=== PATIENT | male | born 1970 | race Caucasian/White ===

== ENCOUNTER 2017-06-02 12:56 | Inpatient (IN) | payer OTHER ==
--- NOTE | 2017-06-02 15:22 | HP ---
Admission [facility] Chief Complaint: I am trying to stop using before I get lost. I need help. Allergies/Adverse Reactions: Allergies Allergy/AdvReac Type Severity Reaction Status Date / Time Fish Containing Products Allergy Severe Swelling Verified 06/02/17 15:21 peanut Allergy Severe Swelling Verified 06/02/17 15:21 turkey Allergy Severe Swelling Verified 06/02/17 15:21 History of Present Illness: pt is a 47yr old male with a history of cannabis and cocaine dependence seeking detox for treatment. Exam Limitations: No Limitations - Ebola screening Have you traveled outside of the country in the last 21 days: No Have you had contact with anyone from an Ebola affected area: No Have you been sick,other than usual withdrawal symptoms: No Do you have a fever: No - Review of Systems Constitutional: Loss of Appetite EENT: reports: No Symptoms Reported Respiratory: reports: No Symptoms reported Cardiac: reports: No Symptoms Reported GI: reports: Indigestion : reports: No Symptoms Reported Musculoskeletal: reports: No Symptoms Reported Integumentary: reports: No Symptoms Reported Neuro: reports: Tingling (left arm tingling sensation for about three days but is able to feel arm,fingers,skin. Pt states he may have slept on the arm but not sure.) Endocrine: reports: Excessive Sweating, Flushing, Intolerance to Cold, Intolerance to Heat Hematology: reports: No Symptoms Reported Psychiatric: reports: No Sypmtoms Reported, Judgement Intact, Mood/Affect Appropiate, Orientated x3, Agitated Other Systems: Reviewed and Negative Patient History - Patient Medical History Hx Anemia: No Hx Asthma: Yes Hx Chronic Obstructive Pulmonary Disease (COPD): No Hx Cancer: No Hx Cardiac Disorders: No Hx Congestive Heart Failure: No Hx Hypertension: No Hx Hypercholesterolemia: No Hx Pacemaker: No HX Cerebrovascular Accident: No Hx Seizures: No Hx Dementia: No Hx Diabetes: No Hx Gastrointestinal Disorders: No Hx Liver Disease: No Hx Genitourinary Disorders: No Hx Sexually Transmitted Disorders: No Hx Renal Disease (ESRD): No Hx Thyroid Disease: No Hx Human Immunodeficiency Virus (HIV): No (neg) Hx Hepatitis C: No (neg) Hx Depression: Yes Hx Suicide Attempt: Yes (tried to OD with pill 2014; denies any S/H ideation today.) Hx Bipolar Disorder: Yes Hx Schizophrenia: No - Patient Surgical History Past Surgical History: No - PPD History Previous Implant?: Yes Documented Results: Negative w/o proof Implanted On Prior [facility] Admission?: No PPD to be Administered?: Yes - Reproductive History Patient is a Female of Child Bearing Age (11 -55 yrs old): No - Smoking Cessation Smoking history: Current every day smoker Have you smoked in the past 12 months: Yes Aproximately how many cigarettes per day: 6 Hx Chewing Tobacco Use: No Initiated information on smoking cessation: Yes 'Breaking Loose' booklet given: 06/02/17 - Substance & Tx. History Hx Alcohol Use: No Hx Substance Use: Yes Substance Use Type: Cocaine, Marijuana Hx Substance Use Treatment: Yes (last detox at [facility] for alcohol dependence 01/2017 ) - Substances Abused Cocaine Route: Smoking Frequency: Daily Amount used: $200 Age of first use: 22 Date of Last Use: 06/01/17 Marijuana/Hashish Route: Smoking Frequency: Daily Amount used: $20 Age of first use: 11 Date of Last Use: 06/01/17 Alcohol Route: Oral Frequency: 1-3 times last 30 days Amount used: 2 pints vodka Age of first use: 9 Date of Last Use: 05/18/17 Family Disease History - Family Disease History Family Disease History: Diabetes: Father (), Mother, Heart Disease: Father, Mother, CA: Father, Mother Admission Physical Exam [facility] - Physical General Appearance: Yes: Appropriately Dressed, Mild Distress, Anxious HEENTM: Yes: Hearing grossly Normal, Normal ENT Inspection Respiratory: Yes: Lungs Clear, Normal Breath Sounds, No Respiratory Distress Neck: Yes: No masses,lesions,Nodules Breast: Yes: Within Normal Limits Cardiology: Yes: Regular Rhythm, Regular Rate, S1, S2 Abdominal: Yes: Normal Bowel Sounds, Non Tender, Soft Genitourinary: Yes: Within Normal Limits Back: Yes: Normal Inspection Musculoskeletal: Yes: Within Normal Limits Extremities: Yes: Normal Capillary Refill, Tremors Neurological: Yes: Fully Oriented, Alert, Normal Response Integumentary: Yes: Normal Color Lymphatic: Yes: Within Normal Limits - Diagnostic (1) Asthma Current Visit: Yes Status: Chronic Qualifiers: Asthma severity: mild intermittent Asthma complication type: uncomplicated Qualified Code(s): J45.20 - Mild intermittent asthma, uncomplicated (2) Cannabis dependence Current Visit: Yes Status: Chronic (3) Cocaine dependence Current Visit: Yes Status: Chronic Qualifiers: Substance use status: uncomplicated Qualified Code(s): F14.20 - Cocaine dependence, uncomplicated (4) Nicotine dependence Current Visit: Yes Status: Chronic Qualifiers: Nicotine product type: cigarettes Substance use status: uncomplicated Qualified Code(s): F17.210 - Nicotine dependence, cigarettes, uncomplicated (5) Alcohol abuse Current Visit: No Status: Inactive Cleared for Admission S - Detox or Rehab [facility] Level of Care: Medically Managed Claeared for Rehab Admission: Yes
[2017-06-02] MEDS ORDERED: ACETAMINOPHEN 325 MG TABLET (FP) PO PRN (15:40)
[2017-06-02] MEDS ORDERED: hydrOXYzine PAMOATE 50 MG CAPSULE (FP) PO PRN (15:40)
[2017-06-02] MEDS ORDERED: diphenhydrAMINE HCL 50 MG CAPSULE PO PRN (15:40)
[2017-06-02] MEDS ORDERED: IBUPROFEN 400 MG TABLET (FP) PO PRN (15:40)
[2017-06-02] MEDS ORDERED: MAGNESIUM HYDROX 2400MG/30ML ORAL SUSPENSION 30 ML CUP PO PRN (15:40)
[2017-06-02] MEDS ORDERED: LOPERAMIDE HCL 2 MG CAPSULE PO PRN (15:40)
[2017-06-02] MEDS ORDERED: NICOTINE POLACRILEX 2 MG GUM BC PRN (15:40)
[2017-06-02] MEDS ORDERED: MAG HYDROX/AL HYDROX/SIMETH 30 ML UNIT-DOSE CUP PO PRN (15:40)
[2017-06-02] MEDS ORDERED: MAGNESIUM CITRATE 300 ML BOTTLE PO PRN (15:40)
[2017-06-02] MEDS ORDERED: guaiFENesin/D-METHORPHAN HB 10 ML UNIT-DOSE CUPS PO PRN (15:40)
[2017-06-02] MEDS ORDERED: MENTHOL/PHENOL 1 EACH UD MM PRN (15:40)
[2017-06-02] MEDS ORDERED: P-EPHED 60MG/TRIPROLIDI 2.5MG TABLET PO PRN (15:40)
[2017-06-02 15:45] VITALS: BMI 23.0
[2017-06-02] MEDS ORDERED: ALBUTEROL SO4 6.7 GM HFA INHALER IH PRN (15:45)
[2017-06-02] MEDS: MIRTAZAPINE 15 MG TABLET (FP) PO SCH (21:09)
[2017-06-02] MEDS: DIVALPROEX NA *ER* EXTEND REL 500 MG TABLET.SA (FP) PO SCH (21:09)
[2017-06-02] MEDS: THIAMINE HCL 100 MG TABLET (FP) PO SCH (21:09)
[2017-06-02 23:00] LABS: URINE APPEARANCE CLEAR; URINE BILIRUBIN NEGATIVE (NEGATIVE); URINE BLOOD NEGATIVE (NEGATIVE); URINE COLOR YELLOW; URINE GLUCOSE (UA) NEGATIVE (NEGATIVE); URINE KETONE TRACE (NEGATIVE); URINE LEUK ESTERASE NEGATIVE (NEGATIVE); URINE NITRITE NEGATIVE (NEGATIVE); URINE PROTEIN NEGATIVE (NEGATIVE); URINE UROBILINOGEN NEGATIVE E.U./dl (0.2-1.0)
[2017-06-03] MEDS: PRENATAL VITAMINS W/ FOLIC ACID TABLET (FP) PO SCH (10:04)
[2017-06-03] MEDS: NICOTINE 7 MG/24 HOURS TOPICAL PATCH TD SCH (10:04)
[2017-06-03] MEDS: ARIPiprazole 5 MG TABLET (FP) PO SCH (10:04)
[2017-06-03 10:08] LABS: MCH 34.1 pg (25.7-33.7); MCHC 34.3 g/dl (32.0-35.9); MEAN CELL VOLUME 99.3 fl (80-96); MEAN PLT VOLUME 8.1 fl (7.5-11.1); PLATELET COUNT 206 K/MM3 (134-434); RDW 12.4 % (11.9-15.9)
[2017-06-03 10:17] LABS: ALBUMIN 3.7 g/dl (3.4-5.0); ANION GAP 6 (8-16); CALCIUM 9.2 mg/dL (8.5-10.1); CO2 31 mmol/L (21-32); GLUCOSE,RANDOM 80 mg/dL (74-106)
[2017-06-03 10:21] LABS: ALK PHOS 53 U/L (45-117); BILIRUBIN,TOTAL 0.7 mg/dL (0.2-1.0); CREATININE 1.1 mg/dL (0.7-1.3); SGOT/AST 16 U/L (15-37); SGPT/ALT 18 U/L (12-78); TOT PROT 6.6 g/dl (6.4-8.2)
[2017-06-03] MEDS: MIRTAZAPINE 15 MG TABLET (FP) PO SCH (21:20)
[2017-06-03] MEDS: THIAMINE HCL 100 MG TABLET (FP) PO SCH (21:20)
[2017-06-03] MEDS: DIVALPROEX NA *ER* EXTEND REL 500 MG TABLET.SA (FP) PO SCH (21:20)
[2017-06-04] MEDS: ARIPiprazole 5 MG TABLET (FP) PO SCH (09:59)
[2017-06-04] MEDS: PRENATAL VITAMINS W/ FOLIC ACID TABLET (FP) PO SCH (09:59)
[2017-06-04] MEDS: NICOTINE 7 MG/24 HOURS TOPICAL PATCH TD SCH (10:00)
--- NOTE | 2017-06-04 10:32 | HP ---
Psychiatrist Admission - Data Date of interview: 06/04/17 Admission source: [facility] Identifying data: This is the first 5n inpatient rehabilitation admission for this 47 year old male Medical History: asthma, smokes cigarettes 6-7 a day. Psychiatric History: Patient is very irritable and poor historian, he admits one psychiatric hospitalization at [facility] in due to suicidal attmept as overdosed with pills, he currently attends [facility] and on the following medications Depakote 500 mg po hs, Remeron 15 mg po hs and Abilify 5 mg po daily. He reports was diagnosed as Bipolar. Patient asked to leave office "I don't feel well and meed a rest, I will talk to you when I feel better" and left. Physical/Sexual Abuse/Trauma History: Denies history of sexual, physical and verbla abuse. Vital Signs: Vital Signs - 24 hr 06/04/17 06/04/17 06/04/17 00:30 03:30 06:39 Temperature 98.3 F Pulse Rate 64 Respiratory 18 18 16 Rate Blood Pressure 119/58 Allergies/Adverse Reactions: Allergies Allergy/AdvReac Type Severity Reaction Status Date / Time Fish Containing Products Allergy Severe Swelling Verified 06/02/17 15:21 peanut Allergy Severe Swelling Verified 06/02/17 15:21 turkey Allergy Severe Swelling Verified 06/02/17 15:21 No Known Drug Allergies Allergy Verified 06/02/17 18:26 Date of last physical exam: 06/02/17 Concur with the findings of this exam: Yes - Substance Abuse/Tx History Hx Alcohol Use: Yes (1-3 times last month ) Substance Use Type: Alcohol (drinkins 2 pints of vodka), Marijuana (daily for $ 20) Hx Substance Use Treatment: Yes ( detox at [facility]) - Admission Criteria Previous failed treatment: Yes Poor recovery environment: Yes Comorbidities: Yes Lacks judgement: Yes Mental Status Exam - Mental Status Exam Alert and Oriented to: Time, Place, Person Cognitive Function: Grossly Intact Patient Appearance: Unkempt Mood: Withdrawn, Irritable Affect: Mood Congruent Patient Behavior: Resitive to Care Speech Pattern: Clear, Appropriate Voice Loudness: Normal Thought Process: Intact, Goal Oriented Thought Disorder: Not Present Hallucinations: Denies Suicidal Ideation: Denies Homicidal Ideation: Denies Insight/Judgement: Fair Sleep: Fair Appetite: Fair Muscle strength/Tone: Normal Gait/Station: Normal Psychiatric Findings - Problem List ([place] 1, 2,3) (1) Asthma Current Visit: Yes Status: Chronic Qualifiers: Asthma severity: mild intermittent Asthma complication type: uncomplicated Qualified Code(s): J45.20 - Mild intermittent asthma, uncomplicated (2) Cannabis dependence Current Visit: Yes Status: Chronic (3) Cocaine dependence Current Visit: Yes Status: Chronic Qualifiers: Substance use status: uncomplicated Qualified Code(s): F14.20 - Cocaine dependence, uncomplicated (4) Nicotine dependence Current Visit: Yes Status: Chronic Qualifiers: Nicotine product type: cigarettes Substance use status: uncomplicated Qualified Code(s): F17.210 - Nicotine dependence, cigarettes, uncomplicated (5) Bipolar I disorder with mixed features Current Visit: Yes Status: Acute - Initial Treatment Plan Initial Treatment Plan: will continue his current medications, monitor progress as needed.
--- NOTE | 2017-06-04 16:06 | EKG ---
Test Reason : Blood Pressure : / mmHG Vent. Rate : 069 BPM Atrial Rate : 069 BPM P-R Int : 166 ms QRS Dur : 076 ms QT Int : 416 ms P-R-T Axes : 062 004 -13 degrees QTc Int : 445 ms NORMAL SINUS RHYTHM NORMAL ECG NO PREVIOUS ECGS AVAILABLE Confirmed by TOSHA GARCIA MD ([id number]) on 06/04/2017 4:06:20 PM Referred By: Confirmed By:TOSHA GARCIA MD
[2017-06-04] MEDS: DIVALPROEX NA *ER* EXTEND REL 500 MG TABLET.SA (FP) PO SCH (21:02)
[2017-06-04] MEDS: THIAMINE HCL 100 MG TABLET (FP) PO SCH (21:02)
[2017-06-04] MEDS: MIRTAZAPINE 15 MG TABLET (FP) PO SCH (21:02)
[2017-06-05] MEDS: ARIPiprazole 5 MG TABLET (FP) PO SCH (09:57)
[2017-06-05] MEDS: PRENATAL VITAMINS W/ FOLIC ACID TABLET (FP) PO SCH (09:57)
[2017-06-05] MEDS: NICOTINE 7 MG/24 HOURS TOPICAL PATCH TD SCH (09:58)
[2017-06-05] MEDS ORDERED: MIRTAZAPINE 15 MG TABLET (FP) PO SCH (15:48)
--- NOTE | 2017-06-05 15:48 | PN ---
Psychiatric Progress Note Vital Signs: Vital Signs Period Temp Pulse Resp BP Sys/Rincon Pulse Ox Last 24 Hr 98.1 F 73 18-18 112/74 Date of Session: 06/05/17 Chief Complaint:: "can't sleep" HPI: Patient is a 47 year old with history of cocaine, cannabis, nicotine comorbid Bipolar I disorder. ROS: WNL Current Medications: Active Medications Generic Name Dose Route Start Last Admin Trade Name Freq PRN Reason Stop Dose Admin Acetaminophen 650 mg 06/02/17 15:40 Tylenol - PO Q4H PRN PAIN Al Hydroxide/Mg Hydroxide 30 ml 06/02/17 15:40 Mylanta Oral Suspension - PO Q6H PRN DYSPEPSIA Albuterol Sulfate 2 puff 06/02/17 15:45 Ventolin Hfa Inhaler - IH Q4H PRN Aripiprazole 5 mg 06/03/17 10:00 06/05/17 09:57 Abilify PO 5 mg DAILY ANABELLA Administration Buspirone HCl 15 mg 06/02/17 22:00 06/05/17 09:57 Buspar - PO 15 mg BID ANABELLA Administration Diphenhydramine HCl 50 mg 06/02/17 15:40 Benadryl - PO HSMR1 PRN INSOMNIA Divalproex Sodium 500 mg 06/02/17 22:00 06/04/17 21:02 Depakote *Er* - PO 500 mg HS ANABELLA Administration Eucalyptus/Menthol/Phenol/Sorbitol 1 each 06/02/17 15:40 Cepastat Lozenge - MM Q4H PRN SORE THROAT Guaifenesin 10 ml 06/02/17 15:40 Robitussin Dm - PO Q6H PRN COUGH Hydroxyzine Pamoate 50 mg 06/02/17 15:40 Vistaril - PO Q4H PRN AGITATION Ibuprofen 400 mg 06/02/17 15:40 06/04/17 21:02 Motrin - PO 400 mg Q6H PRN Administration SEVERE PAIN Loperamide HCl 4 mg 06/02/17 15:40 Imodium - PO Q6H PRN DIARRHEA Magnesium Citrate 300 ml 06/02/17 15:40 Citroma - PO Q48H PRN CONSTIPATION Magnesium Hydroxide 30 ml 06/02/17 15:40 Milk Of Magnesia - PO DAILY PRN CONSTIPATION Mirtazapine 15 mg 06/02/17 22:00 06/04/17 21:02 Remeron - PO 15 mg HS ANABELLA Administration Nicotine 7 mg 06/03/17 10:00 06/05/17 09:58 Nicoderm Patch - TD Not Given DAILY ANABELLA Nicotine Polacrilex 2 mg 06/02/17 15:40 Nicorette Gum - BC Q2H PRN NICOTINE REPLACEMENT RX Multivit/Folic Acid/Iron 1 tab 06/03/17 10:00 06/05/17 09:57 Vitamins ([facility]) - PO 1 tab DAILY ANABELLA Administration Pseudoephedrine/Triprolidine 1 combo 06/02/17 15:40 Actifed - PO TID PRN NASAL CONGESTION Thiamine HCl 100 mg 06/02/17 22:00 06/04/17 21:02 Vitamin B1 - PO 100 mg HS ANABELLA Administration Current Side Effect: No Lab tests ordered: No Lab tests reviewed: Yes Provider note:: Patient reports having difficult time to adjust to the unit, he stays most of the days in bed, he reports he can't sleep at nights and next day not able to get up and go to the groups. He reports he is fatiqued and want to rest. Reviewed the medications with the patient, will increase Remeron 30 mg po hs, continue the rest, monitor progress as needed. Patient was encouraged to attend groups. Total face to face time:: 30 Mental Status Exam - Mental Status Exam Alert and Oriented to: Time, Place, Person Cognitive Function: Good Patient Appearance: Unkempt Mood: Anxious, Irritable Affect: Appropriate, Mood Congruent Patient Behavior: Appropriate, Cooperative Speech Pattern: Clear, Appropriate Voice Loudness: Normal Thought Process: Intact, Goal Oriented Thought Disorder: Not Present Hallucinations: Denies Suicidal Ideation: Denies Homicidal Ideation: Denies Insight/Judgement: Fair Sleep: Poorly, Difficulty falling asleep Appetite: Fair Muscle strength/Tone: Normal Gait/Station: Spastic Psychiatric Treatment Plan - Problem List (1) Asthma Current Visit: Yes Qualifiers: Asthma severity: mild intermittent Asthma complication type: uncomplicated Qualified Code(s): J45.20 - Mild intermittent asthma, uncomplicated (2) Cannabis dependence Current Visit: Yes (3) Cocaine dependence Current Visit: Yes Qualifiers: Substance use status: uncomplicated Qualified Code(s): F14.20 - Cocaine dependence, uncomplicated (4) Nicotine dependence Current Visit: Yes Qualifiers: Nicotine product type: cigarettes Substance use status: uncomplicated Qualified Code(s): F17.210 - Nicotine dependence, cigarettes, uncomplicated (5) Bipolar I disorder with mixed features Current Visit: Yes
[2017-06-05] MEDS: DIVALPROEX NA *ER* EXTEND REL 500 MG TABLET.SA (FP) PO SCH (21:31)
[2017-06-05] MEDS: THIAMINE HCL 100 MG TABLET (FP) PO SCH (21:32)
[2017-06-06 07:00] VITALS: BP 118/56; PULSE 70; TEMP 98.2
[2017-06-06] MEDS: NICOTINE 7 MG/24 HOURS TOPICAL PATCH TD SCH (10:44)
[2017-06-06] MEDS: PRENATAL VITAMINS W/ FOLIC ACID TABLET (FP) PO SCH (10:44)
[2017-06-06] MEDS: ARIPiprazole 5 MG TABLET (FP) PO SCH (10:44)
[2017-06-06] MEDS ORDERED: INSULIN (NOVOLOG) ASPART 100 UNITS/ML 10ML VIAL ONE (12:03)
--- NOTE | 2017-06-06 12:07 | PN ---
Psychiatric Progress Note Vital Signs: Vital Signs Period Temp Pulse Resp BP Sys/Rincon Pulse Ox Last 24 Hr 98.2 F 70 18-18 118/56 Date of Session: 06/06/17 Chief Complaint:: " I have decided to go home.I don't want to stay in this place." HPI: Patient was admitted to [address] on 06/02/17 to address cocaine dependence,cannabis dependence,nicotine dependence co-morbid with alcohol abuse and bipolar disorder.Mr Ospina has decided to leave the program after four days of treatment. ROS: Unremarkable.No somatic complaints offered.Patient is alert and fully oriented.Normal vitals. Current Medications: Active Medications Generic Name Dose Route Start Last Admin Trade Name Freq PRN Reason Stop Dose Admin Acetaminophen 650 mg 06/02/17 15:40 Tylenol - PO Q4H PRN PAIN Al Hydroxide/Mg Hydroxide 30 ml 06/02/17 15:40 Mylanta Oral Suspension - PO Q6H PRN DYSPEPSIA Albuterol Sulfate 2 puff 06/02/17 15:45 Ventolin Hfa Inhaler - IH Q4H PRN Aripiprazole 5 mg 06/03/17 10:00 06/06/17 10:44 Abilify PO 5 mg DAILY ANABELLA Administration Buspirone HCl 15 mg 06/02/17 22:00 06/06/17 10:44 Buspar - PO 15 mg BID ANABELLA Administration Diphenhydramine HCl 50 mg 06/02/17 15:40 Benadryl - PO HSMR1 PRN INSOMNIA Divalproex Sodium 500 mg 06/02/17 22:00 06/05/17 21:31 Depakote *Er* - PO 500 mg HS ANABELLA Administration Eucalyptus/Menthol/Phenol/Sorbitol 1 each 06/02/17 15:40 Cepastat Lozenge - MM Q4H PRN SORE THROAT Guaifenesin 10 ml 06/02/17 15:40 Robitussin Dm - PO Q6H PRN COUGH Hydroxyzine Pamoate 50 mg 06/02/17 15:40 Vistaril - PO Q4H PRN AGITATION Ibuprofen 400 mg 06/02/17 15:40 06/04/17 21:02 Motrin - PO 400 mg Q6H PRN Administration SEVERE PAIN Loperamide HCl 4 mg 06/02/17 15:40 Imodium - PO Q6H PRN DIARRHEA Magnesium Citrate 300 ml 06/02/17 15:40 Citroma - PO Q48H PRN CONSTIPATION Magnesium Hydroxide 30 ml 06/02/17 15:40 Milk Of Magnesia - PO DAILY PRN CONSTIPATION Mirtazapine 30 mg 06/05/17 15:48 06/05/17 21:32 Remeron - PO 30 mg HS ANABELLA Administration Nicotine 7 mg 06/03/17 10:00 06/06/17 10:44 Nicoderm Patch - TD Not Given DAILY ANABELLA Nicotine Polacrilex 2 mg 06/02/17 15:40 Nicorette Gum - BC Q2H PRN NICOTINE REPLACEMENT RX Multivit/Folic Acid/Iron 1 tab 06/03/17 10:00 06/06/17 10:44 Vitamins ([facility]) - PO 1 tab DAILY ANABELLA Administration Pseudoephedrine/Triprolidine 1 combo 06/02/17 15:40 Actifed - PO TID PRN NASAL CONGESTION Thiamine HCl 100 mg 06/02/17 22:00 06/05/17 21:32 Vitamin B1 - PO 100 mg HS ANABELLA Administration Medication(s) Change(s): No changes.Medications are reviewed and discussed with the patient.Mr Ospina is on a regimen of depakote ER 500 mg/hs + buspar 15 mg po bid + remeron 15 mg/hs + abilify 5 mg/day.Scripts are sent electronically to [facility] located at [address] [place] [address].Side effects/ benefits revisited with patient.Made aware of risk of liver dysfunction,blood dyscrasias,alopecia,weight gain (depakote),orthostasis (remeron),cardiac adverse events,abnormal involuntary movements (abilify).Patient is informed about the advantages of adherence to aftercare (maintenance of syndromic recovery,mood stabilization,prevention of relapses,decreased frequency of rehospitalizations,amelioration of general functioning/quality of life).Patient endorses favorable response/good tolerability to these medications.States that he will adhere to the regimen and keep his appointments with his caregivers at the [facility] in [facility].Labs results are reviewed.Acceptable for continuation of valproate (in the absence of valproic acid level).LFTs / CBC are normal.No clinical evidence of depakote toxicity. Current Side Effect: No Lab tests ordered: No Lab tests reviewed: Yes (See comments.) Provider note:: Patient has made the decision to leave this program.Sales Department Supervisor met with Mr Ospina to discuss his reasons.He states that he " cannot stay so long without a cigarette ",that he feels " like in detention in here ",that after five days in this setting,he feels " much better and ready to return to my residential ".Patient is encouraged to stay in treatment but he declines to reconsider.Mr Ospina comments that his medications and an [facility] clinic are now available to him.Patient is with the opinion that a less restrictive therapeutic milieu will be more suitable to his needs.Mental status is unremarkable.See MSE report.Mr Ospina is at his baseline.Capable of making his own decisions about his welfare. Mental Status Exam - Mental Status Exam Alert and Oriented to: Time, Place, Person Cognitive Function: Good Patient Appearance: Well Groomed (casual,neat) Mood: Euthymic Affect: Appropriate, Normal Range Patient Behavior: Appropriate, Cooperative Speech Pattern: Clear, Appropriate Voice Loudness: Normal Thought Process: Intact, Goal Oriented Thought Disorder: Not Present Hallucinations: Denies Suicidal Ideation: Denies Homicidal Ideation: Denies Insight/Judgement: Fair Sleep: Well Muscle strength/Tone: Normal Gait/Station: Normal Psychiatric Treatment Plan - Problem List (1) Bipolar disorder Comment: . (2) Cannabis dependence Comment: . (3) Cocaine dependence Qualifiers: Substance use status: uncomplicated Qualified Code(s): F14.20 - Cocaine dependence, uncomplicated Comment: . (4) Nicotine dependence Qualifiers: Nicotine product type: cigarettes Substance use status: uncomplicated Qualified Code(s): F17.210 - Nicotine dependence, cigarettes, uncomplicated Comment: . (5) Asthma Qualifiers: Asthma severity: mild intermittent Asthma complication type: uncomplicated Qualified Code(s): J45.20 - Mild intermittent asthma, uncomplicated Comment: .
== END 2017-06-06 12:16 | disposition left against medical advice (07) | DRG 770 ==
LOC: YASAS 12:56 → Y5N 15:44
PROVIDERS: ADMIT Psychiatry & Neurology Psychiatry; ATTEND Psychiatry & Neurology Psychiatry
PROC: HZ42ZZZ Group Counseling for Substance Abuse Treatment, Cognitive-Behavioral (ICD-10-PCS; principal; 2017-06-06)
DX: F14.20 Cocaine dependence, uncomplicated (principal); F12.20 Cannabis dependence, uncomplicated; F17.210 Nicotine dependence, cigarettes, uncomplicated; F10.10 Alcohol abuse, uncomplicated; F31.89 Other bipolar disorder; J45.20 Mild intermittent asthma, uncomplicated
CPT/HCPCS: 36415; 71010-TC; 80053; 81003; 85027; 86593; 93005; 93010

== ENCOUNTER 2020-07-24 11:01 | Inpatient (IN) | payer OTHER ==
--- NOTE | 2020-07-24 11:51 | BHS.RME ---
Substance Use & Tx History - Substance Use History Cocaine-Crack Substance amount: $300 Frequency of use: Daily Substance route: Smoking Date of Last Use: 07/23/20 (First use age 22 y) Xanax Substance amount: 2 mg Frequency of use: Daily Substance route: Oral Date of Last Use: 07/23/20 (First use age 50 y) Marijuana/Hashish Substance amount: $20 Frequency of use: Daily Substance route: Smoking Date of Last Use: 07/24/20 (First use age 9 y) Nicotine Substance amount: one pack Frequency of use: Daily Substance route: Smoking Date of Last Use: 07/24/20 (First use age 12 y) Synthetic Cannabinoid Substance amount: couple of joints Frequency of use: More than 3 times per week Substance route: Smoking Date of Last Use: 07/22/20 (First use age 17y) - Last Treatment Date of last treatment: May 2017 Treatment type: Substance Use Disorder (JJ) Where was last treatment: Detox Physical/Psych/Mental Status - Behavior General Behavior: Decreased activity Eye Contact: Normal - Cooperativeness Cooperativeness: Cooperative - Thinking Thought Processes: Tight Thought content: Future oriented - Physical Health Problems Is patient presently having any pain?: No Does patient presently have any injuries (include location): No Does patient currently have a fever: No CIWA Nausea/Vomitin-Mild Nausea/No Vomiting Muscle Tremors: 2 Anxiety: 3 Agitation: 2 Paroxysmal Sweats: 3 Orientation: 1-Uncertain about Date Tacttile Disturbances: 0-None Auditory Disturbances: 0-None Visual Disturbances: 0-None Headache: 0-None Present CIWA-Ar Total Score: 12
[2020-07-24 12:05] VITALS: BMI 20.3
--- NOTE | 2020-07-24 13:07 | HP ---
CIWA Score Nausea/Vomitin-Mild Nausea/No Vomiting Muscle Tremors: 2 Anxiety: 3 Agitation: 2 Paroxysmal Sweats: 3 Orientation: 1-Uncertain about Date Tacttile Disturbances: 0-None Auditory Disturbances: 0-None Visual Disturbances: 0-None Headache: 0-None Present CIWA-Ar Total Score: 12 - Admission Criteria OASAS Guidelines: Admission for Medically Managed Detox: Requires at least one of the followin. CIWA greater than 12 2. Seizures within the past 24 hours 3. Delirium tremens within the past 24 hours 4. Hallucinations within the past 24 hours 5. Acute intervention needed for co occurring medical disorder 6. Acute intervention needed for co occurring psychiatric disorder 7. Severe withdrawal that cannot be handled at a lower level of care (continued vomiting, continued diarrhea, abnormal vital signs) requiring intravenous medication and/or fluids 8. Admitting History and Physical - Admission Chief Complaint: Mr. Ospina is a 50 yo man who presents to [facility] requesting detox from Xanax use. He wants to go to [facility] after detox. History of Present Illness: Mr. Ospina is a 50 yo man who presents to [facility] requesting detox from Xanax use. He wants to go to [facility] after detox. PMH: Asthma on albuterol inhaler, PE dx 2019 on Eliquis, hypothyroid, left knee ruptured meniscus PSH; none Psych: Bipolar: Trazodone, Remeron, Depakote: none in one month SOC: homeless Legal: yes, pt states " I choose not to discuss", no pending court date Substance Use History Cocaine-Crack Substance amount: $300 Frequency of use: Daily Substance route: Smoking Date of Last Use: 07/23/20 (First use age 22 y) Xanax Substance amount: 2 mg Frequency of use: Daily Substance route: Oral Date of Last Use: 07/23/20 (First use age 50 y) Marijuana/Hashish Substance amount: $20 Frequency of use: Daily Substance route: Smoking Date of Last Use: 07/24/20 (First use age 9 y) Nicotine Substance amount: one pack Frequency of use: Daily Substance route: Smoking Date of Last Use: 07/24/20 (First use age 12 y) Synthetic Cannabinoid Substance amount: couple of joints Frequency of use: More than 3 times per week Substance route: Smoking Date of Last Use: 07/22/20 (First use age 17y) - Last Treatment Date of last treatment: May 2017 Treatment type: Substance Use Disorder (JJ) Where was last treatment: Detox History Source: Patient Limitations to Obtaining History: No Limitations - Smoking History Smoking history: Current every day smoker Have you smoked in the past 12 months: Yes Aproximately how many cigarettes per day: 20 - Alcohol/Substance Use Hx Alcohol Use: Yes (1-3 times last month ) Admission [facility] Allergies/Adverse Reactions: Allergies Allergy/AdvReac Type Severity Reaction Status Date / Time Fish Containing Products Allergy Severe Swelling Verified 06/02/17 15:21 peanut Allergy Severe Swelling Verified 06/02/17 15:21 turkey Allergy Severe Swelling Verified 06/02/17 15:21 No Known Drug Allergies Allergy Verified 06/02/17 18:26 Exam Limitations: No Limitations - Ebola screening Have you traveled outside of the country in the last 21 days: No Have you been sick,other than usual withdrawal symptoms: No Do you have a fever: No - Review of Systems Constitutional: Unintentional Wgt. Loss (40 lb weight loss in 2 mos) EENT: reports: Blurred Vision (has glasses with him), Other (missing) Respiratory: reports: No Symptoms reported Cardiac: reports: No Symptoms Reported GI: reports: No Symptoms Reported : reports: No Symptoms Reported Musculoskeletal: reports: No Symptoms Reported Integumentary: reports: No Symptoms Reported Neuro: reports: No Symptoms reported, Tremors Endocrine: reports: No Symptoms Reported Hematology: reports: Blood Clots (hx of PE in 2019) Psychiatric: reports: Anxious Patient History - Patient Medical History Hx Anemia: No Hx Asthma: Yes (PUMPS) Hx Chronic Obstructive Pulmonary Disease (COPD): No Hx Cancer: No Hx Cardiac Disorders: No Hx Congestive Heart Failure: No Hx Hypertension: No Hx Hypercholesterolemia: No Hx Pacemaker: No HX Cerebrovascular Accident: No Hx Seizures: No Hx Dementia: No Hx Diabetes: No Hx Gastrointestinal Disorders: No Hx Liver Disease: No Hx Genitourinary Disorders: No Hx Sexually Transmitted Disorders: No Hx Renal Disease (ESRD): No Hx Thyroid Disease: No Hx Human Immunodeficiency Virus (HIV): No (neg) Hx Hepatitis C: No (neg) Hx Depression: No Hx Suicide Attempt: No Hx Bipolar Disorder: Yes Hx Schizophrenia: No - Patient Surgical History Past Surgical History: No Hx Neurologic Surgery: No Hx Cataract Extraction: No Hx Cardiac Surgery: No Hx Lung Surgery: No Hx Breast Surgery: No Hx Breast Biopsy: No Hx Abdominal Surgery: No Hx Appendectomy: No Hx Cholecystectomy: No Hx Genitourinary Surgery: No Hx Section: No Hx Orthopedic Surgery: No Anesthesia Reaction: No - PPD History Previous Implant?: Yes (needs CXR) Documented Results: Positive w/proof Implanted On Prior [facility] Admission?: Yes Date: 06/04/17 - Smoking Cessation Smoking history: Current every day smoker Have you smoked in the past 12 months: Yes Aproximately how many cigarettes per day: 20 Hx Chewing Tobacco Use: No Initiated information on smoking cessation: Yes 'Breaking Loose' booklet given: 07/24/20 - Substances abused Crack Substance route: Smoking Frequency: Daily Amount used: $300- $400 Age of first use: 22 Date of last use: 07/24/20 Alprazolam (Xanax) Substance route: Oral Frequency: Daily Amount used: 2mg - 3 tabs Age of first use: 50 Date of last use: 07/23/20 Marijuana/Hashish Substance route: Smoking Frequency: Daily Amount used: $20 Age of first use: 9 Date of last use: 07/24/20 Admission Physical Exam BHS - Vital Signs Vital Signs: Vital Signs - 24 hr 07/24/20 07/24/20 12:03 12:49 Temperature 98.0 F 98 F Pulse Rate 78 78 Respiratory 18 18 Rate Blood Pressure 103/64 103/69 - Physical General Appearance: Yes: No Apparent Distress, Nourished, Appropriately Dressed HEENTM: Yes: EOMI, Hearing grossly Normal, Normocephalic, Normal Voice, Other (missing all upper teeth) Respiratory: Yes: Lungs Clear, Normal Breath Sounds, No Respiratory Distress, No Accessory Muscle Use Neck: Yes: Within Normal Limits, Supple Breast: Yes: Breast Exam Deferred Cardiology: Yes: Regular Rhythm, Regular Rate Abdominal: Yes: Normal Bowel Sounds, Non Tender, Flat, Soft Genitourinary: Yes: Other (deferred) Back: Yes: Normal Inspection Musculoskeletal: Yes: Gait Steady Extremities: Yes: Normal Inspection, Non-Tender Neurological: Yes: Alert, Normal Mood/Affect Integumentary: Yes: Normal Color, Dry, Warm, Other (scar left wrist, old injury) - Diagnostic (1) Sedative, hypnotic or anxiolytic use disorder, mild, abuse Current Visit: Yes Status: Acute (2) History of pulmonary embolus (PE) Current Visit: Yes Status: Chronic (3) evp general counsel current use of anticoagulant Current Visit: Yes Status: Chronic (4) Hypothyroidism Current Visit: Yes Status: Chronic Qualifiers: Hypothyroidism type: acquired Qualified Code(s): E03.9 - Hypothyroidism, unspecified (5) Bipolar disorder Current Visit: Yes Status: Chronic Comment: . (6) Asthma Current Visit: Yes Status: Chronic Qualifiers: Asthma severity: mild Asthma complication type: uncomplicated Comment: . (7) Cannabis dependence Current Visit: Yes Status: Acute Comment: . (8) Cocaine dependence Current Visit: Yes Status: Acute Qualifiers: Substance use status: uncomplicated Qualified Code(s): F14.20 - Cocaine dependence, uncomplicated Comment: . (9) Nicotine dependence Current Visit: Yes Status: Acute Qualifiers: Nicotine product type: cigarettes Substance use status: uncomplicated Qualified Code(s): F17.210 - Nicotine dependence, cigarettes, uncomplicated Comment: . Cleared for Admission [facility] - Detox or Rehab [facility] Level of Care: Medically Managed Detox Regimen/Protocol: Valium Breathalyzer - Breathalyzer Breathalyzer: 0 Urine Drug Screen - Test Device Lot number: [id number] Expiration date: 02/28/22 - Control Is test valid?: Yes - Results Drug screen NEGATIVE: No Urine drug screen results: THC-Marijuana, JAKE-Cocaine, BZO-Benzodiazepines Inpatient Rehab Admission - Rehab Decision to Admit Inpatient rehab admission?: No
[2020-07-24] MEDS ORDERED: LEVOTHYROXINE NA 125 MCG TABLET (FP) PO SCH (13:15)
[2020-07-24] MEDS ORDERED: ALBUTEROL SO4 HFA INHALER IH PRN (13:15)
[2020-07-24] MEDS ORDERED: BISMUTH SUBSALICYLATE 524 MG/30 ML UD PO PRN (13:16)
[2020-07-24] MEDS ORDERED: MAGNESIUM CITRATE 300 ML BOTTLE PO PRN (13:16)
[2020-07-24] MEDS ORDERED: diazePAM 5 MG TABLET PO PRN (13:16)
[2020-07-24] MEDS ORDERED: ACETAMINOPHEN 325 MG TABLET (FP) PO PRN ×2 (13:16)
[2020-07-24] MEDS ORDERED: ONDANSETRON *ODT* 4 MG TABLET SL PRN (13:16)
[2020-07-24] MEDS ORDERED: MENTHOL/PHENOL 1 EACH UD MM PRN (13:16)
[2020-07-24] MEDS ORDERED: NICOTINE POLACRILEX 2 MG GUM BUC PRN (13:16)
[2020-07-24] MEDS ORDERED: MAG HYDROX/AL HYDROX/SIMETH 30 ML UNIT-DOSE CUP PO PRN (13:16)
[2020-07-24] MEDS ORDERED: IBUPROFEN 400 MG TABLET (FP) PO PRN (13:16)
[2020-07-24] MEDS ORDERED: METHOCARBAMOL 500 MG TABLET PO PRN (13:16)
[2020-07-24] MEDS ORDERED: MAGNESIUM HYDROX 2400MG/30ML ORAL SUSPENSION 30 ML CUP PO PRN (13:16)
[2020-07-24] MEDS: NICOTINE 21 MG/24 HOURS TOPICAL PATCH TD SCH (14:30)
[2020-07-24] MEDS: hydrOXYzine PAMOATE 25 MG CAPSULE (FP) PO SCH ×3 (14:30→23:15)
[2020-07-24] MEDS: diazePAM 5 MG TABLET PO SCH ×2 (14:30→23:15)
[2020-07-24 16:08] LABS: HEMATOCRIT 37.3 % (35.4-49); HEMOGLOBIN 12.9 GM/dL (11.7-16.9); MCH 34.5 pg (25.7-33.7); MCHC 34.6 g/dl (32.0-35.9); MEAN CELL VOLUME 99.9 fl (80-96); MEAN PLT VOLUME 8.2 fl (7.5-11.1); PLATELET COUNT 211 K/MM3 (134-434); RBC 3.73 M/mm3 (4.00-5.60); RDW 13.1 % (11.9-15.9); WHITE BLOOD COUNT 6.5 K/mm3 (4.0-10.0)
[2020-07-24 16:16] LABS: ALBUMIN 3.7 g/dl (3.4-5.0); BILIRUBIN,TOTAL 0.8 mg/dL (0.2-1); BLOOD UREA NITROGEN 9.8 mg/dL (7-18); POTASSIUM 3.2 mmol/L (3.5-5.1); TOT PROT 6.8 g/dl (6.4-8.2)
[2020-07-24] MEDS: MELATONIN 5 MG TABLETS PO SCH (23:15)
[2020-07-24] MEDS: THIAMINE HCL 100 MG TABLET (FP) PO SCH (23:15)
[2020-07-25] MEDS: diazePAM 5 MG TABLET PO SCH ×3 (07:01→22:48)
[2020-07-25] MEDS: hydrOXYzine PAMOATE 25 MG CAPSULE (FP) PO SCH (07:01)
[2020-07-25] MEDS: LEVOTHYROXINE 100 MCG, LEVOTHYROXINE 25 MCG PO SCH (07:03)
[2020-07-25] MEDS ORDERED: LEVOTHYROXINE NA 100 MCG TABLET (FP) ONE (07:03)
[2020-07-25] MEDS ORDERED: LEVOTHYROXINE NA 25 MCG TABLET (FP) ONE (07:03)
[2020-07-25] MEDS ORDERED: hydrOXYzine PAMOATE 25 MG CAPSULE (FP) PO PRN (09:39)
--- NOTE | 2020-07-25 09:41 | PN ---
S CIWA - CIWA Score Nausea/Vomitin-No Nausea/No Vomiting Muscle Tremors: 3 Anxiety: 1-Mildly Anxious Agitation: 2 Paroxysmal Sweats: 2 Orientation: 0-Oriented Tacttile Disturbances: 0-None Auditory Disturbances: 0-None Visual Disturbances: 0-None Headache: 0-None Present CIWA-Ar Total Score: 8 BHS Progress Note (SOAP) Subjective: tired sweats irritable agitation Objective: 07/25/20 09:40 Vital Signs Temperature 97.1 F L 07/25/20 06:01 Pulse Rate 59 L 07/25/20 06:01 Respiratory Rate 18 07/25/20 06:01 Blood Pressure 105/63 07/25/20 06:01 O2 Sat by Pulse Oximetry (%) 96 07/25/20 06:01 Laboratory Tests 07/24/20 07/24/20 07/24/20 13:15 13:15 13:15 WBC 6.5 RBC 3.73 L Hgb 12.9 Hct 37.3 MCV 99.9 H MCH 34.5 H MCHC 34.6 RDW 13.1 Plt Count 211 MPV 8.2 Sodium 140 Potassium 3.2 L Chloride 103 Carbon Dioxide 31 Anion Gap 6 L BUN 9.8 Creatinine 1.0 Est GFR (CKD-EPI)AfAm 100.55 Est GFR (CKD-EPI)NonAf 86.76 Random Glucose 63 L Calcium 9.0 Total Bilirubin 0.8 AST 29 ALT 42 Alkaline Phosphatase 51 Total Protein 6.8 Albumin 3.7 Syphilis Serology HIV Ag/Ab Combo Qual Negative 07/24/20 13:15 WBC RBC Hgb Hct MCV MCH MCHC RDW Plt Count MPV Sodium Potassium Chloride Carbon Dioxide Anion Gap BUN Creatinine Est GFR (CKD-EPI)AfAm Est GFR (CKD-EPI)NonAf Random Glucose Calcium Total Bilirubin AST ALT Alkaline Phosphatase Total Protein Albumin Syphilis Serology Non-reactive HIV Ag/Ab Combo Qual labs noted low potassium 3.2 aaox3 lying in bed no acute distress Assessment: 07/25/20 09:40 withdrawals Plan: continue detox kdur 20meq x 2 days ordered increase fluids repeat labs
[2020-07-25] MEDS: NICOTINE 21 MG/24 HOURS TOPICAL PATCH TD SCH (11:29)
[2020-07-25] MEDS: POTASSIUM CHLORIDE TABS 20 MEQ TABLET.ER (FP) PO SCH ×2 (11:55→18:12)
[2020-07-25] MEDS: PRENATAL VITAMINS W/ FOLIC ACID TABLET (FP) PO SCH (11:55)
--- NOTE | 2020-07-25 14:30 | CONSULT ---
[facility] Psychiatric Consult - Data Date of interview: 07/25/20 Admission source: Self-referred Identifying data: Mr Ospina is a 50 years old Black male seeking detox treatment for cocaine, benzodiazepine and cannabis Substance Abuse History: Reports history of cocaine, xanax, marijuana and k2 use. Refer to addiction counselor's summary for further information Medical History: Significant for bronchial asthma, hypothyroidism anfd orthosurgery for repair meniscus right knee. Smokes cigarettes 1ppd Psychiatric History: Patient was approached at bedside several times during the day and was found in a deep sleep. At last time, he woke up by calling his name and he told sheet writer:" Please I have not slept for 7 days. I need some rest. Can we talk tomorrow". Please reconsult when patient is more appropriate for interview
[2020-07-25] MEDS: THIAMINE HCL 100 MG TABLET (FP) PO SCH (22:48)
[2020-07-25] MEDS: MELATONIN 5 MG TABLETS PO SCH (22:48)
[2020-07-26] MEDS ORDERED: LEVOTHYROXINE NA 25 MCG TABLET (FP) ONE (04:06)
[2020-07-26] MEDS ORDERED: LEVOTHYROXINE NA 100 MCG TABLET (FP) ONE (04:06)
[2020-07-26] MEDS: diazePAM 5 MG TABLET PO SCH ×2 (06:46→18:24)
[2020-07-26] MEDS: LEVOTHYROXINE 100 MCG, LEVOTHYROXINE 25 MCG PO SCH (06:47)
[2020-07-26] MEDS: POTASSIUM CHLORIDE TABS 20 MEQ TABLET.ER (FP) PO SCH ×2 (10:49→18:24)
[2020-07-26] MEDS: PRENATAL VITAMINS W/ FOLIC ACID TABLET (FP) PO SCH (10:49)
[2020-07-26] MEDS: NICOTINE 21 MG/24 HOURS TOPICAL PATCH TD SCH (10:49)
[2020-07-26 10:57] LABS: BASO % 0.3 % (0-2.0); EOS % 1.4 % (0-4.5); HEMATOCRIT 38.4 % (35.4-49); HEMOGLOBIN 13.2 GM/dL (11.7-16.9); LYMPH % 47.8 % (8-40); MCH 34.3 pg (25.7-33.7); MCHC 34.2 g/dl (32.0-35.9); MEAN CELL VOLUME 100.3 fl (80-96); MEAN PLT VOLUME 8.3 fl (7.5-11.1); MONO % 10.3 % (3.8-10.2); NEUT % 40.2 % (42.8-82.8); PLATELET COUNT 195 K/MM3 (134-434); RBC 3.83 M/mm3 (4.00-5.60); RDW 13.3 % (11.9-15.9); WHITE BLOOD COUNT 3.3 K/mm3 (4.0-10.0)
[2020-07-26 11:06] LABS: ALBUMIN 3.1 g/dl (3.4-5.0); BILIRUBIN,TOTAL 0.5 mg/dL (0.2-1); BLOOD UREA NITROGEN 12.1 mg/dL (7-18); CALCIUM 8.3 mg/dL (8.5-10.1); CREATININE 0.9 mg/dL (0.55-1.3); TOT PROT 5.9 g/dl (6.4-8.2)
[2020-07-26] MEDS ORDERED: ALBUTEROL SO4 HFA INHALER IH PRN (11:44)
--- NOTE | 2020-07-26 11:51 | PN ---
S CIWA - CIWA Score Nausea/Vomitin-No Nausea/No Vomiting Muscle Tremors: 1-None Visible, but [place] Anxiety: 1-Mildly Anxious Agitation: 1-Slight > Activity Paroxysmal Sweats: No Perspiration Orientation: 0-Oriented Tacttile Disturbances: 0-None Auditory Disturbances: 0-None Visual Disturbances: 0-None Headache: 0-None Present CIWA-Ar Total Score: 3 BHS Progress Note (SOAP) Subjective: feeling better interrupted sleep Objective: 07/26/20 11:46 Vital Signs Temperature 97.7 F 07/26/20 09:06 Pulse Rate 80 07/26/20 09:06 Respiratory Rate 17 07/26/20 09:06 Blood Pressure 101/65 07/26/20 09:06 O2 Sat by Pulse Oximetry (%) 99 07/26/20 09:06 Laboratory Tests 07/24/20 07/24/20 07/24/20 13:15 13:15 13:15 WBC 6.5 RBC 3.73 L Hgb 12.9 Hct 37.3 MCV 99.9 H MCH 34.5 H MCHC 34.6 RDW 13.1 Plt Count 211 MPV 8.2 Absolute Neuts (auto) Neutrophils % Lymphocytes % Monocytes % Eosinophils % Basophils % Nucleated RBC % Sodium 140 Potassium 3.2 L Chloride 103 Carbon Dioxide 31 Anion Gap 6 L BUN 9.8 Creatinine 1.0 Est GFR (CKD-EPI)AfAm 100.55 Est GFR (CKD-EPI)NonAf 86.76 Random Glucose 63 L Calcium 9.0 Total Bilirubin 0.8 AST 29 ALT 42 Alkaline Phosphatase 51 Total Protein 6.8 Albumin 3.7 Syphilis Serology COVID-19 ([facility]) HIV Ag/Ab Combo Qual Negative 07/24/20 07/24/20 07/26/20 13:15 13:30 08:10 WBC 3.3 L RBC 3.83 L Hgb 13.2 Hct 38.4 MCV 100.3 H MCH 34.3 H MCHC 34.2 RDW 13.3 Plt Count 195 MPV 8.3 Absolute Neuts (auto) 1.3 L Neutrophils % 40.2 L Lymphocytes % 47.8 H Monocytes % 10.3 H Eosinophils % 1.4 Basophils % 0.3 Nucleated RBC % 0 Sodium Potassium Chloride Carbon Dioxide Anion Gap BUN Creatinine Est GFR (CKD-EPI)AfAm Est GFR (CKD-EPI)NonAf Random Glucose Calcium Total Bilirubin AST ALT Alkaline Phosphatase Total Protein Albumin Syphilis Serology Non-reactive COVID-19 ([facility]) Not detected HIV Ag/Ab Combo Qual 07/26/20 08:10 WBC RBC Hgb Hct MCV MCH MCHC RDW Plt Count MPV Absolute Neuts (auto) Neutrophils % Lymphocytes % Monocytes % Eosinophils % Basophils % Nucleated RBC % Sodium 141 Potassium 4.0 Chloride 106 Carbon Dioxide 32 Anion Gap 3 L BUN 12.1 Creatinine 0.9 Est GFR (CKD-EPI)AfAm 114.21 Est GFR (CKD-EPI)NonAf 98.54 Random Glucose 85 Calcium 8.3 L Total Bilirubin 0.5 AST 20 ALT 31 Alkaline Phosphatase 45 Total Protein 5.9 L Albumin 3.1 L Syphilis Serology COVID-19 ([facility]) HIV Ag/Ab Combo Qual potassium improved aaox3 ambulating no acute distress Assessment: 07/26/20 11:51 mild/ no s/s of withdrawals Plan: complete detox d/c in am
[2020-07-26] MEDS: THIAMINE HCL 100 MG TABLET (FP) PO SCH (23:19)
[2020-07-26] MEDS: MELATONIN 5 MG TABLETS PO SCH (23:19)
[2020-07-27] MEDS ORDERED: LEVOTHYROXINE NA 100 MCG TABLET (FP) ONE (04:33)
[2020-07-27] MEDS ORDERED: LEVOTHYROXINE NA 25 MCG TABLET (FP) ONE (04:33)
[2020-07-27] MEDS ORDERED: diazePAM 5 MG TABLET PO ONE (06:00)
[2020-07-27 06:24] VITALS: BP 94/56; PULSE 80; TEMP 97.1
[2020-07-27] MEDS: LEVOTHYROXINE 100 MCG, LEVOTHYROXINE 25 MCG PO SCH (07:13)
[2020-07-27] MEDS: POTASSIUM CHLORIDE TABS 20 MEQ TABLET.ER (FP) PO SCH (09:42)
[2020-07-27] MEDS: PRENATAL VITAMINS W/ FOLIC ACID TABLET (FP) PO SCH (09:43)
[2020-07-27] MEDS: NICOTINE 21 MG/24 HOURS TOPICAL PATCH TD SCH (09:43)
== END 2020-07-27 09:50 | disposition home or self-care (01) | DRG 774 ==
LOC: YASAS 11:01 → Y6N 13:22
PROVIDERS: ADMIT Allergy & Immunology; ATTEND Allergy & Immunology
PROC: HZ2ZZZZ Detoxification Services for Substance Abuse Treatment (ICD-10-PCS; principal; 2020-07-24)
DX: F14.20 Cocaine dependence, uncomplicated (principal); F13.20 Sedative, hypnotic or anxiolytic dependence, uncomplicated; F12.20 Cannabis dependence, uncomplicated; F19.20 Other psychoactive substance dependence, uncomplicated; F17.210 Nicotine dependence, cigarettes, uncomplicated; F31.9 Bipolar disorder, unspecified; E03.9 Hypothyroidism, unspecified; J45.909 Unspecified asthma, uncomplicated; Z86.711 Personal history of pulmonary embolism; Z79.01 Long term (current) use of anticoagulants; Z98.890 Other specified postprocedural states; Z91.013 Allergy to seafood; Z91.018 Allergy to other foods; Z59.0 Homelessness
CPT/HCPCS: 36415; 71046-TC-FY; 80053; 85025; 85027; 86780; 87389; U0003